=== PATIENT | female | born 1965 | race Caucasian/White ===

== ENCOUNTER → 2017-04-30 | Outpatient (CLI) | payer BC ==
--- NOTE | 2017-05-03 10:17 | US ---
TRANSABDOMINAL PELVIC ULTRASOUND History: Postmenopausal bleeding Comparison: None Technique: Multiple grayscale and color flow Doppler images of the pelvis were obtained transabdomina lly. Findings: The uterus measures 6.4 x 3.3 x 3.9 cm. The endometrial stripe measures 16 mm. The right ovary m easures 2.7 x 1.2 x 2.8 cm. The left ovary measures 3.2 x 1.9 x 2.0 cm. Normal flow in the ovaries bilaterally. No adnexal masses. No free fluid. IMPRESSION: 1. The endometrium is thickened if the patient is truly menopausal. If this is the case, recommend e ndometrial sampling and REHABILITATION ASSISTANT consultation.. Reported By:
== END ==
LOC: RAD 11:03
PROVIDERS: ATTEND Obstetrics & Gynecology Obstetrics
DX: N95.0 Postmenopausal bleeding (principal)
CPT/HCPCS: 76856